=== PATIENT | male | born 1980 | race Caucasian/White ===

== ENCOUNTER 2023-03-30 02:27 | Emergency (ER) | payer MEDICAID ==
[~2023-03-30] VITALS: Ht 185.4 cm; Wt 83.9 kg
[2023-03-30 03:25] LABS: BASOPHILS % (AUTO) 0.2 % (0.0-2.0); EOSINOPHILS # (AUTO) 0.1 K/uL (0.0-0.7); EOSINOPHILS % (AUTO) 2.2 % (0.0-7.0); HEMATOCRIT 36.8 % (36.7-47.1); HEMOGLOBIN 12.6 g/dL (12.5-16.3); LYMPHOCYTES # (AUTO) 0.8 K/uL (0.8-4.8); LYMPHOCYTES % (AUTO) 17.2 % (20.5-51.5); MEAN CORPUSCULAR HEMOGLOBIN 28.6 uug (23.8-33.4); MEAN CORPUSCULAR HGB CONC 34 g/dL (32.5-36.3); MEAN CORPUSCULAR VOLUME 83.6 fL (73.0-96.2); MONOCYTES # (AUTO) 0.6 K/uL (0.1-1.30); MONOCYTES % (AUTO) 12.8 % (0.0-11.0); NEUTROPHILS # (AUTO) 3.1 K/uL (1.8-8.9); NEUTROPHILS % (AUTO) 67.6 % (38.5-71.5); PLATELET COUNT (AUTO) 129 K/uL (152-348); RED CELL DISTRIBUTION WIDTH 14.4 % (12.1-16.2); WHITE BLOOD COUNT (AUTO) 4.7 K/uL (3.6-10.2)
[2023-03-30 03:26] LABS: DIFFERENTIAL COMMENT 1
[2023-03-30 03:29] LABS: CALCIUM 8.1 mg/dL (8.5-10.1); CARBON DIOXIDE 29 mmol/L (21-32); CHLORIDE 103 mmol/L (98-107); CREATININE 1.1 mg/dL (0.6-1.3); GLUCOSE 89 mg/dL (74-106); POTASSIUM 3.7 mmol/L (3.5-5.1); SODIUM SERUM 139 mmol/L (136-145); UREA NITROGEN, BLOOD 22 mg/dL (7-18)
[2023-03-30 04:34] VITALS: O2SAT 100
== END 2023-03-30 04:37 | disposition home or self-care (01) ==
LOC: ER 02:31
DX: R07.89 Other chest pain (principal); F17.210 Nicotine dependence, cigarettes, uncomplicated
CPT/HCPCS: 36415; 71045; 84484; 85025; 93005; A4663

== ENCOUNTER 2023-11-14 03:33 | Emergency (ER) | payer SELFPAY ==
[~2023-11-14] VITALS: Ht 182.9 cm; Wt 75.0 kg
[2023-11-14] MEDS ORDERED: predniSONE 20 MG TABLET ONE (04:22)
[2023-11-14] MEDS: predniSONE 20 MG TABLET PO ONE (04:25)
[2023-11-14] MEDS ORDERED: PRED20TA PO (04:30)
[2023-11-14 06:02] VITALS: BP 137/91; TEMP 98.9; O2SAT 98
== END 2023-11-14 05:55 | disposition home or self-care (01) ==
LOC: ER 03:35
DX: G51.0 Bell's palsy (principal); R51.9 Headache, unspecified; F17.210 Nicotine dependence, cigarettes, uncomplicated; Z79.899 Other long term (current) drug therapy
CPT/HCPCS: 70450; A4606; A4663; J7512

== ENCOUNTER 2024-02-09 01:22 | Emergency (ER) | payer SELFPAY ==
[~2024-02-09] VITALS: Ht 185.4 cm; Wt 70.3 kg
[~2024-02-09 01:22] MED LIST: PRED20TA PO
[2024-02-09] MEDS ORDERED: IBUPROFEN 600 MG TABLET ONE (02:07)
[2024-02-09] MEDS: IBUPROFEN 600 MG TABLET PO ONE (02:10)
[2024-02-09 02:12] LABS: BASOPHILS % (AUTO) 0.4 % (0.0-2.0); EOSINOPHILS % (AUTO) 0.2 % (0.0-7.0); HEMATOCRIT 36.7 % (36.7-47.1); HEMOGLOBIN 12.4 g/dL (12.5-16.3); LYMPHOCYTES # (AUTO) 1.2 K/uL (0.8-4.8); LYMPHOCYTES % (AUTO) 10.7 % (20.5-51.5); MEAN CORPUSCULAR HEMOGLOBIN 27.3 uug (23.8-33.4); MEAN CORPUSCULAR HGB CONC 34 g/dL (32.5-36.3); MEAN CORPUSCULAR VOLUME 81.3 fL (73.0-96.2); MONOCYTES % (AUTO) 8.4 % (0.0-11.0); NEUTROPHILS # (AUTO) 9.2 K/uL (1.8-8.9); NEUTROPHILS % (AUTO) 80.3 % (38.5-71.5); PLATELET COUNT (AUTO) 177 K/uL (152-348); RED BLOOD CELL COUNT(AUTO) 4.52 MIL/uL (4.06-5.63); RED CELL DISTRIBUTION WIDTH 14.6 % (12.1-16.2); WHITE BLOOD COUNT (AUTO) 11.4 K/uL (3.6-10.2)
[2024-02-09 02:15] LABS: DIFFERENTIAL COMMENT 1
[2024-02-09 02:25] LABS: ETHANOL < 3 MG/DL (0-10)
[2024-02-09 02:30] LABS: ALANINE AMINOTRANSFERASE 31 U/L (16-63); ALBUMIN 2.8 g/dL (3.4-5.0); ALKALINE PHOSPHATASE 128 U/L (50-136); ASPARTATE AMINOTRANSFERASE 25 U/L (15-37); BILIRUBIN,TOTAL 0.5 mg/dL (0.2-1.0); CALCIUM 8.5 mg/dL (8.5-10.1); CARBON DIOXIDE 26 mmol/L (21-32); CHLORIDE 96 mmol/L (98-107); CREATININE 1.2 mg/dL (0.6-1.3); GLUCOSE 116 mg/dL (74-106); POTASSIUM 4.3 mmol/L (3.5-5.1); SODIUM SERUM 131 mmol/L (136-145); TOTAL PROTEIN, SERUM 8.7 g/dL (6.4-8.2); UREA NITROGEN, BLOOD 14 mg/dL (7-18)
[2024-02-09 04:16] LABS: *BILIRUBIN,URIN NEGATIVE (NEGATIVE); *BLOOD, URINE 3+ (NEGATIVE); *CLARITY,URINE CLOUDY (CLEAR); *COLOR,URINE YELLOW (YELLOW); *KETONES,URINE NEGATIVE (NEGATIVE); *PROTEIN,URINE 2+ (NEGATIVE); *UROBILINOGEN,URINE 0.2 E.U./dl (NORMAL); LEUKOCYTE ESTERASE ,URINE 2+ (NEGATIVE); NITRITE, URINE NEGATIVE (NEGATIVE); UGLUCOSE NEGATIVE (NEGATIVE)
[2024-02-09 04:25] LABS: *AMPHETAMINE, URINE POSITIVE (NEGATIVE); *BARBITURATE, URINE NEGATIVE (NEGATIVE); *BENZODIAZEPINE, URINE NEGATIVE (NEGATIVE); *CANNABINOID, URINE NEGATIVE (NEGATIVE); *COCCAINE, URINE NEGATIVE (NEGATIVE); *OPIATE, URINE NEGATIVE (NEGATIVE); *PHENCYCLIDINE SCREEN,URINE NEGATIVE (NEGATIVE); FENTANYL, URINE NEGATIVE (NEGATIVE)
[2024-02-09 05:53] LABS: BACTERIA,URINE FEW /HPF (NONE SEEN); MUCUS,URINE MODERATE /LPF (0-FEW); RBC,URINE 20-50 /HPF (0-3); SQUAMOUS EPITHELIAL CELL,UR NONE SEEN /HPF (NONE SEEN); WBC,URINE 50-80 /HPF (0-3)
[2024-02-09] MEDS ORDERED: AMOX-430 PO (06:05)
[2024-02-09] MEDS ORDERED: NEOM10DR11 EACH EAR (06:05)
[2024-02-09 06:20] VITALS: BP 134/91; TEMP 99; O2SAT 98
[2024-02-09] MEDS ORDERED: SULF1TAB48 PO (06:30)
[2024-02-10 23:11] LABS: *CHLAMYDIA NAA Negative (Negative); *GC NAA Negative (Negative)
[2024-02-11 07:07] LABS: *TRIC.VAG. NAA Negative (Negative)
== END 2024-02-09 06:15 | disposition home or self-care (01) ==
LOC: ER 01:57
DX: U07.1 COVID-19 (principal); N39.0 Urinary tract infection, site not specified; H60.93 Unspecified otitis externa, bilateral; G51.0 Bell's palsy; F17.200 Nicotine dependence, unspecified, uncomplicated; Z79.52 Long term (current) use of systemic steroids; Z79.899 Other long term (current) drug therapy
CPT/HCPCS: 36415; 71045; 83605; 85025; 87040; 87077; 87491; A4606; A4663; G0480